=== PATIENT | male | born 1955 | race American Indian/Alaskan Native ===

== ENCOUNTER 2018-10-04 23:15 | Inpatient (IN) | payer MEDICARE, OTHER ==
[2018-10-05 00:29] LABS: Basophils # (Auto) 0.1 K/mm3 (0.0-0.1); Basophils % (Auto) 1.1 % (0.0-1.8); Eosinophils # (Auto) 0.1 K/mm3 (0.0-0.4); Eosinophils % (Auto) 2.5 % (0.0-4.3); Hematocrit 32.1 % (35.5-45.6); Hemoglobin 10.7 gm/dl (11.8-15.2); Lymphocytes % (Auto) 18.6 % (13.4-35.0); Mean Corpuscular HGB Conc 33 % (32-34); Mean Corpuscular Volume 77 fl (84-94); Monocytes # (Auto) 0.6 K/mm3 (0.0-0.8); Monocytes % (Auto) 10.6 % (0.0-7.3); Platelet Count 269 K/mm3 (140-440); Red Blood Count 4.18 M/mm3 (3.65-5.03)
[2018-10-05 01:04] LABS: Red Cell Distribution Width 23.7 % (13.2-15.2)
[2018-10-05] MEDS ORDERED: ULTRAM PO ONE ×2 (01:05→10:45)
[2018-10-05 01:07] LABS: Albumin 2.9 g/dL (3.9-5)
--- NOTE | 2018-10-05 01:17 | Emergency Department Report ---
ED General Adult HPI - General Chief complaint: Pain General Stated complaint: GENERAL PAIN/SUICIDAL THOUGHTS Time Seen by Provider: 10/04/18 23:58 Source: patient Mode of arrival: Stretcher Limitations: No Limitations - History of Present Illness Initial comments: 63-year-old male with history of end-stage renal disease on dialysis presents to the ED with suicidal ideation, due to depression from chronic pain. He states he was weaned down from his opiates, origin made him very depressed. He takes tramadol 50 mg twice a day for his chronic pain which consist of back and joint pain. - Related Data Home Medications Medication Instructions Recorded Confirmed Last Taken Brimonidine 0.15% 1 drop OU TID 10/05/18 10/05/18 Unknown Cefpodoxime Proxetil 200 mg PO 3XW 10/05/18 10/05/18 2 Days Ago ~10/03/18 Cholecalciferol (Vitamin D3) 400 tab PO DAILY 10/05/18 10/06/18 Unknown Minoxidil [Loniten] 2.5 mg PO BID 10/05/18 10/05/18 Unknown NIFEdipine [Nifedipine ER] 60 mg PO DAILY 10/05/18 10/05/18 1 Day Ago ~10/04/18 Magnesium Oxide 420 mg PO DAILY 10/06/18 10/06/18 Unknown Omeprazole 20 mg PO DAILY 10/06/18 10/06/18 Unknown Sennosides 8.6 mg PO PRN 10/06/18 10/06/18 Unknown Terazosin HCl 10 mg PO QHS 10/06/18 10/06/18 Unknown Allergies Allergy/AdvReac Type Severity Reaction Status Date / Time No Known Allergies Allergy Verified 10/05/18 01:27 ED Review of Systems ROS: Stated complaint: GENERAL PAIN/SUICIDAL THOUGHTS Other details as noted in HPI Comment: All other systems reviewed and negative Gastrointestinal: denies: abdominal pain, nausea Genitourinary: denies: urgency Musculoskeletal: back pain, arthralgia ED Past Medical Hx - Past Medical History Previous Medical History?: Yes Hx Renal Disease: Yes Hx Arthritis: Yes Hx COPD: Yes Additional medical history: AICD PACEMAKER - Surgical History Past Surgical History?: Yes Additional Surgical History: fistula placement - Social History Smoking Status: Current Every Day Smoker Substance Use Type: None - Medications Home Medications: Home Medications Medication Instructions Recorded Confirmed Last Taken Type Brimonidine 0.15% 1 drop OU TID 10/05/18 10/05/18 Unknown History Cefpodoxime Proxetil 200 mg PO 3XW 10/05/18 10/05/18 2 Days Ago History ~10/03/18 Cholecalciferol (Vitamin D3) 400 tab PO DAILY 10/05/18 10/06/18 Unknown History Minoxidil [Loniten] 2.5 mg PO BID 10/05/18 10/05/18 Unknown History NIFEdipine [Nifedipine ER] 60 mg PO DAILY 10/05/18 10/05/18 1 Day Ago History ~10/04/18 Magnesium Oxide 420 mg PO DAILY 10/06/18 10/06/18 Unknown History Omeprazole 20 mg PO DAILY 10/06/18 10/06/18 Unknown History Sennosides 8.6 mg PO PRN 10/06/18 10/06/18 Unknown History Terazosin HCl 10 mg PO QHS 10/06/18 10/06/18 Unknown History ED Physical Exam - General Limitations: No Limitations General appearance: alert, in no apparent distress - Head Head exam: Present: atraumatic, normocephalic - Eye Eye exam: Present: normal appearance, PERRL, EOMI Pupils: Present: normal accommodation - ENT ENT exam: Present: normal exam - Neck Neck exam: Present: normal inspection - Psychiatric Psychiatric exam: Present: depressed ED Course Vital Signs 10/04/18 10/05/18 10/05/18 23:18 01:20 09:50 Temperature 98 F 97.5 F L 98.3 F Pulse Rate 74 69 85 Respiratory 18 18 20 Rate Blood Pressure 147/84 Blood Pressure 158/83 177/92 [Right] O2 Sat by Pulse 95 98 97 Oximetry ED Medical Decision Making - Lab Data Result diagrams: 10/05/18 00:07 10/07/18 12:58 Critical care attestation.: If time is entered above; I have spent that time in minutes in the direct care of this critically ill patient, excluding procedure time. ED Disposition Clinical Impression: End stage renal disease Chronic pain Qualifiers: Chronic pain type: chronic pain syndrome Qualified Code(s): G89.4 - Chronic pain syndrome Disposition: LEFT AGAINST MED ADVICE Is pt being admited?: No Does the pt Need Aspirin: No Condition: Stable
[2018-10-05 05:43] LABS: Bilirubin,Urine NEG (Negative); Blood,Urine NEG (Negative); Color,Urine Yellow (Yellow); Urobilinogen,Urine < 2.0 mg/dL (<2.0)
[2018-10-05 05:51] LABS: Amphetamine Screen,Urine PRESUMPTIVE NEGATIVE; Benzodiazepines Screen,Urine PRESUMPTIVE NEGATIVE; Cannabinoid Screen,Urine PRESUMPTIVE NEGATIVE; Cocaine Screen,Urine PRESUMPTIVE NEGATIVE; Methadone Screen,Urine PRESUMPTIVE NEGATIVE; Opiate Screen,Urine PRESUMPTIVE NEGATIVE
--- NOTE | 2018-10-05 07:26 | XRay Report ---
CHEST 1 VIEW INDICATION / CLINICAL INFORMATION: hypertension. COMPARISON: None available. FINDINGS: SUPPORT DEVICES: Dual-chamber pacemaker on the left. HEART / MEDIASTINUM: No significant abnormality. LUNGS / PLEURA: Mild patchy density is seen in the right lower lung. No pneumothorax. ADDITIONAL FINDINGS: No significant additional findings. IMPRESSION: 1. Airspace opacity in the right lower lung. Signer Name: Remberto Torres MD Signed: 10/05/2018 7:21 AM Workstation Name: [id number]
--- NOTE | 2018-10-05 07:58 | Emergency Department Report ---
Brenda Doc - Documentation Documentation: Patient previously 1013 by one of my colleagues. He is denying suicidal ideati on now. He states he simply was not able to get his chronic tramadol from his dialysis doctor. He tells me this is because his dialysis doctor does not want assume his primary care. He states he was frustrated about not having his tramadol and made some comment about life not being worth living. He denies being suicidal however. It certainly does not seem to be depressed at this point nor actively suicidal. Patient states he's had some occasional cough but no fever no chills. He states he is due for dialysis today. He also states he gets a weekly paracentesis for ascites. He does not know the etiology of this ascites. He does not know who his dialysis physician is. He is dialyzed at [facility] (? [facility]. He states he is recently moved here from [place]. On examination patient is nontoxic and Apley hydrated. Doesn't appear to be fluid overloaded. HEENT his sclerae clear Neck is supple no meningismus Cardiovascular S1-S2 regular rate without murmur Chest clear to auscultation Abdomen patient has semi-tense ascites, abdomen soft nontender Musculoskeletal exam no acute deformity Neurological exam patient is fully ambulatory and grossly intact Assessment #1 end-stage renal disease dialysis #2 tests ascites needs paracentesis #3 doubt suicidal ideation #4 right lower lobe airspace opacity Plan Patient to be admitted to the hospital service. I have ordered a plain CT of his chest to further delineate number 4.
--- NOTE | 2018-10-05 09:21 | Cat Scan Report ---
CT CHEST WITHOUT CONTRAST INDICATION / CLINICAL INFORMATION: Dyspnea chest pain. TECHNIQUE: Axial CT images were obtained through the chest without contrast. All CT scans at this location are p erformed using CT dose reduction for ALARA by means of automated exposure control. COMPARISON: None available. FINDINGS: HEART: Cardiomegaly. Cardiac leads project in expected position.. THORACIC AORTA: No significant abnormality. MEDIASTINUM and BALTAZAR: No significant abnormality. LUNGS: No acute air space or interstitial disease. Trace interstitial edema PLEURA: No significant pleural effusion. No pneumothorax. ADDITIONAL FINDINGS: None. UPPER ABDOMEN: Cirrhotic liver with large volume ascites SKELETAL SYSTEM: No significant abnormality. IMPRESSION: Cardiomegaly with trace interstitial edema. No pneumonia. Cirrhotic liver with large volume ascites i n the abdomen. Signer Name: Rigoberto Hightower MD Signed: 10/05/2018 9:17 AM Workstation Name: [id number]
[2018-10-05] MEDS ORDERED: ULTRAM ONE (10:50)
[2018-10-05] MEDS ORDERED: TYLENOL PO PRN (12:58)
[2018-10-05] MEDS ORDERED: ZOFRAN IV PRN (12:58)
[2018-10-05] MEDS ORDERED: SODIUM CHLORIDE FLUSH SYRINGE 10 ML IV PRN (12:58)
[2018-10-05] MEDS ORDERED: HALDOL IM PRN (12:59)
[2018-10-05] MEDS ORDERED: HALDOL PO PRN (12:59)
[2018-10-05] MEDS: PROCARDIA XL PO SCH (15:38)
[2018-10-05] MEDS ORDERED: APRESOLINE PO PRN (16:46)
--- NOTE | 2018-10-05 17:05 | History and Physical Report ---
History of Present Illness Date of admission: 10/05/18 07:58 Chief complaint: I have pain and I feel depressed History of present illness: 63-year-old man who presents with suicidal ideation. He is a and usually follows up at the [facility]. The patient states that he was very depressed, most likely due to his chronic pain. He believes that taking opiates is making him depressed, he was then weaned down to tramadol twice a day for chronic back and joint pain. The patient did not have a definite plan to kill himself if he wanted to Past medical history End-stage renal disease, Osteoarthritis, COPD, status post AICD/pacemaker, Past surgical history av placement, AICD/pacemaker placement next Social history Current every day smoker Family history Family history of heart disease Medications and Allergies Allergies Allergy/AdvReac Type Severity Reaction Status Date / Time No Known Allergies Allergy Verified 10/05/18 01:27 Home Medications Medication Instructions Recorded Confirmed Last Taken Type Brimonidine 0.15% 1 drop OU TID 10/05/18 10/05/18 Unknown History Cefpodoxime Proxetil 200 mg PO 3XW 10/05/18 10/05/18 2 Days Ago History ~10/03/18 NIFEdipine [Nifedipine ER] 60 mg PO DAILY 10/05/18 10/05/18 1 Day Ago History ~10/04/18 Active Meds: Active Medications Acetaminophen (Tylenol) 650 mg PO Q4H PRN PRN Reason: Pain MILD(1-3)/Fever >100.5/HUERTAS Amlodipine Besylate (Norvasc) 10 mg PO QDAY [facility] Brimonidine Tartrate (Alphagan P 0.15%) 1 drops OU TID [facility] Haloperidol (Haldol) 1 mg PO Q6H PRN PRN Reason: Agitation Haloperidol Lactate (Haldol) 5 mg IM Q6H PRN PRN Reason: Agitation Hydralazine HCl (Apresoline) 25 mg PO Q6H PRN PRN Reason: Bp > 160/100 Nifedipine (Procardia Xl) 60 mg PO QDAY [facility] Last Admin: 10/05/18 15:38 Dose: 60 mg Documented by: Ondansetron HCl (Zofran) 4 mg IV Q8H PRN PRN Reason: Nausea And Vomiting Sodium Chloride (Sodium Chloride Flush Syringe 10 Ml) 10 ml IV BID [place] Sodium Chloride (Sodium Chloride Flush Syringe 10 Ml) 10 ml IV PRN PRN PRN Reason: LINE FLUSH Review of Systems All systems: negative Constitutional: fatigue Ears, nose, mouth and throat: ear pain Cardiovascular: no chest pain Respiratory: no cough Gastrointestinal: loss of appetite, early satiety, other (abdominal distention) Genitourinary Male: no dysuria Rectal: no pain Musculoskeletal: no neck stiffness Integumentary: no rash Neurological: no transient paralysis Psychiatric: change in sleep habits, sleep disturbances Endocrine: no cold intolerance Hematologic/Lymphatic: no easy bruising Allergic/Immunologic: no urticaria Exam - Constitutional Vitals: Temp Pulse Resp BP Pulse Ox 98.3 F 85 20 177/92 97 10/05/18 09:50 10/05/18 09:50 10/05/18 09:50 10/05/18 09:50 10/05/18 09:50 General appearance: Present: no acute distress, well-nourished - EENT Eyes: Present: PERRL ENT: hearing intact, clear oral mucosa - Neck Neck: Present: supple, normal ROM - Respiratory Respiratory effort: normal Respiratory: bilateral: CTA - Cardiovascular Heart Sounds: Present: S1 & S2. Absent: rub, click - Extremities Extremities: pulses symmetrical, No edema Peripheral Pulses: within normal limits - Abdominal General gastrointestinal: Present: soft, non-tender, distended (with shifting dullness), normal bowel sounds Male genitourinary: Present: normal - Integumentary Integumentary: Present: clear, warm, dry - Musculoskeletal Musculoskeletal: gait normal, strength equal bilaterally - Psychiatric Psychiatric: no appropriate mood/affect, no intact judgment & insight - Neurologic Neurologic: CNII-XII intact, moves all extremities Results - Labs CBC & Chem 7: 10/05/18 00:07 10/05/18 00:07 Labs: Laboratory Last Values WBC 5.4 K/mm3 (4.5-11.0) 10/05/18 00:07 RBC 4.18 M/mm3 (3.65-5.03) 10/05/18 00:07 Hgb 10.7 gm/dl (11.8-15.2) L 10/05/18 00:07 Hct 32.1 % (35.5-45.6) L 10/05/18 00:07 MCV 77 fl (84-94) L 10/05/18 00:07 MCH 26 pg (28-32) L 10/05/18 00:07 MCHC 33 % (32-34) 10/05/18 00:07 RDW 23.7 % (13.2-15.2) H 10/05/18 00:07 Plt Count 269 K/mm3 (140-440) 10/05/18 00:07 Lymph % (Auto) 18.6 % (13.4-35.0) 10/05/18 00:07 [place] % (Auto) 10.6 % (0.0-7.3) H 10/05/18 00:07 Eos % (Auto) 2.5 % (0.0-4.3) 10/05/18 00:07 Baso % (Auto) 1.1 % (0.0-1.8) 10/05/18 00:07 Lymph # 1.0 K/mm3 (1.2-5.4) L 10/05/18 00:07 [place] # 0.6 K/mm3 (0.0-0.8) 10/05/18 00:07 Eos # 0.1 K/mm3 (0.0-0.4) 10/05/18 00:07 Baso # 0.1 K/mm3 (0.0-0.1) 10/05/18 00:07 Seg Neutrophils % 67.2 % (40.0-70.0) 10/05/18 00:07 Seg Neutrophils # 3.6 K/mm3 (1.8-7.7) 10/05/18 00:07 Sodium 140 mmol/L (137-145) 10/05/18 00:07 Potassium 4.6 mmol/L (3.6-5.0) 10/05/18 00:07 Chloride 99.2 mmol/L (98-107) 10/05/18 00:07 Carbon Dioxide 27 mmol/L (22-30) 10/05/18 00:07 18 mmol/L 10/05/18 00:07 BUN 78 mg/dL (9-20) H 10/05/18 00:07 10.2 mg/dL (0.8-1.5) H 10/05/18 00:07 Estimated GFR 6 ml/min 10/05/18 00:07 8 % 10/05/18 00:07 Glucose 118 mg/dL (75-100) H 10/05/18 00:07 Calcium 8.0 mg/dL (8.4-10.2) L 10/05/18 00:07 0.20 mg/dL (0.1-1.2) 10/05/18 00:07 AST 30 units/L (5-40) 10/05/18 00:07 ALT 16 units/L (7-56) 10/05/18 00:07 111 units/L (35-129) 10/05/18 00:07 6.3 g/dL (6.3-8.2) 10/05/18 00:07 2.9 g/dL (3.9-5) L 10/05/18 00:07 0.9 % 10/05/18 00:07 Yellow (Yellow) 10/05/18 05:06 Clear (Clear) 10/05/18 05:06 8.0 (5.0-7.0) H 10/05/18 05:06 Ur Specific [place] 1.011 (1.003-1.030) 10/05/18 05:06 30 mg/dl mg/dL (Negative) 10/05/18 05:06 Neg mg/dL (Negative) 10/05/18 05:06 Neg mg/dL (Negative) 10/05/18 05:06 Neg (Negative) 10/05/18 05:06 Neg (Negative) 10/05/18 05:06 Neg (Negative) 10/05/18 05:06 < 2.0 mg/dL (<2.0) 10/05/18 05:06 Ur Leukocyte Esterase Tr (Negative) 10/05/18 05:06 5.0 /HPF (0.0-6.0) 10/05/18 05:06 1.0 /HPF (0.0-6.0) 10/05/18 05:06 Presumptive negative 10/05/18 05:06 Presumptive negative 10/05/18 05:06 Ur Barbiturates Screen Presumptive negative 10/05/18 05:06 Ur Phencyclidine Scrn Presumptive negative 10/05/18 05:06 Ur Amphetamines Screen Presumptive negative 10/05/18 05:06 U Benzodiazepines Scrn Presumptive negative 10/05/18 05:06 Presumptive negative 10/05/18 05:06 U Marijuana (THC) Screen Presumptive negative 10/05/18 05:06 Disclamer 10/05/18 05:06 Plasma/Serum Alcohol < 0.01 % (0-0.07) 10/05/18 01:26 Assessment and Plan Assessment and plan: 63-year-old man who presents to the hospital suicidal ideation EKG shows atrial sensing with ventricular pacing with complete capture Suicidal ideation, major depression Management per psychiatry, Haldol when necessary agitation End-stage renal disease In Store Representative consulted for maintenance dialysis Right lung airspace disease CT scan ordered by ER physician showed trace interstitial edema and no pneumonia but cirrhotic liver with marked ascites in abdomen was seen Decompensated cirrhotic liver disease Ascites Obtain hepatitis screening labs, ultrasound guided paracentesis ordered GI consult, Htn urgency optimize bp meds tobacco abuse nicotine patch, counseled about cessation for 11 mins DVT prophylaxis with Lovenox
[2018-10-05] MEDS: APRESOLINE IV PRN ×2 (17:29→21:39)
[2018-10-05] MEDS: ULTRAM PO PRN ×2 (17:30→23:38)
[2018-10-05] MEDS: NORVASC PO SCH (17:30)
--- NOTE | 2018-10-05 18:48 | Consultation ---
History of Present Illness - Reason for Consult Consult date: 10/05/18 Reason for consult: psychiatric evaluation to assess suicide risk - Chief Complaint Chief complaint: "I said I'd rather not live in pain like this." - History of Present Psychiatric Illness 63-year-old man who presented to the ER for pain reasons and made statements that he didn't want to live if he had to hurt like he is. He is a and usually follows up at the [facility]. He recently moved from [place] where he was living alone. He states it became increasingly difficult to care for his needs. He now lives with family. He says he was doing well on tramadol 50mg, 2 po bid and this was confirmed on [place] PDMP. The tramadol was no longer being prescribed and he does not know why. The PDMP indicates he has received #7 day rx x 2 in the last month. He states he has been going to ERs in an attempt for pain relief. He took an old oxycodone prescription, 1/4 tab q 6 hours for a couple of days but it stopped working. He states he wants to live and is doing what he needs to live as comfortably as possible considering his health conditions. He intends to c ontinue going to dialysis. He adamantly denies suicidal ideation. He denies HI and denies AVH. Medications and Allergies Allergies Allergy/AdvReac Type Severity Reaction Status Date / Time No Known Allergies Allergy Verified 10/05/18 01:27 Home Medications Medication Instructions Recorded Confirmed Last Taken Type Brimonidine 0.15% 1 drop OU TID 10/05/18 10/05/18 Unknown History Cefpodoxime Proxetil 200 mg PO 3XW 10/05/18 10/05/18 2 Days Ago History ~10/03/18 Cholecalciferol (Vitamin D3) 1 tab PO DAILY 10/05/18 10/05/18 Unknown History Minoxidil [Loniten] 2.5 mg PO BID 10/05/18 10/05/18 Unknown History NIFEdipine [Nifedipine ER] 60 mg PO DAILY 10/05/18 10/05/18 1 Day Ago History ~10/04/18 Active Meds: Active Medications Acetaminophen (Tylenol) 650 mg PO Q4H PRN PRN Reason: Pain MILD(1-3)/Fever >100.5/HUERTAS Amlodipine Besylate (Norvasc) 10 mg PO QDAY [facility] Last Admin: 10/05/18 17:30 Dose: 10 mg Documented by: Brimonidine Tartrate (Alphagan P 0.15%) 1 drops OU TID [facility] Haloperidol (Haldol) 1 mg PO Q6H PRN PRN Reason: Agitation Haloperidol Lactate (Haldol) 5 mg IM Q6H PRN PRN Reason: Agitation Hydralazine HCl (Apresoline) 25 mg PO Q6H PRN PRN Reason: Bp > 160/100 Hydralazine HCl (Apresoline) 10 mg IV Q4HR PRN PRN Reason: BP >160/100 Last Admin: 10/05/18 17:29 Dose: 10 mg Documented by: Nifedipine (Procardia Xl) 60 mg PO QDAY [facility] Last Admin: 10/05/18 15:38 Dose: 60 mg Documented by: Ondansetron HCl (Zofran) 4 mg IV Q8H PRN PRN Reason: Nausea And Vomiting Sodium Chloride (Sodium Chloride Flush Syringe 10 Ml) 10 ml IV BID [place] Sodium Chloride (Sodium Chloride Flush Syringe 10 Ml) 10 ml IV PRN PRN PRN Reason: LINE FLUSH Tramadol HCl (Ultram) 50 mg PO Q6H PRN PRN Reason: Pain, Moderate (4-6) Last Admin: 10/05/18 17:30 Dose: 50 mg Documented by: Past psychiatric history - Past Medical History Past Medical History: arrhythmia, COPD, ESRD, other (has ascites, glaucoma, cataracts) Past Surgical History: Other (AICD/Pacemaker) - past Psychiatric treatment and history psychiatric treatment history: He has been diagnosed with PTSD and says he went to therapy but does not take medications. He states he is not disabled from PTSD but is 100% from medically conditions. - Social History Social history: lives with family, other () Mental Status Exam - Vital signs Last Vital Signs Temp 98.3 F 10/05/18 09:50 Pulse 85 10/05/18 09:50 Resp 20 10/05/18 09:50 BP 177/92 10/05/18 09:50 Pulse Ox 97 10/05/18 09:50 - Exam Orientation: time, place, person Affect: normal Mood: appropriate, calm Thought content: other (no suicidal or homicidal ideation) Thought Process: Intact, Circumstantial Perceptions: none Speech: normal rate and pattern Concentration: focused Motor activity: normal Level of consciousness: alert Memory: Intact Sleep Symptoms: Difficulty Falling Asleep Appetite: decreased Interaction: cooperative Results Result Diagrams: 10/05/18 00:07 10/05/18 00:07 Abnormal lab results 10/05/18 10/05/18 10/05/18 Range/Units 00:07 00:07 05:06 Hgb 10.7 L (11.8-15.2) gm/dl Hct 32.1 L (35.5-45.6) % MCV 77 L (84-94) fl MCH 26 L (28-32) pg RDW 23.7 H (13.2-15.2) % [place] % (Auto) 10.6 H (0.0-7.3) % Lymph # 1.0 L (1.2-5.4) K/mm3 BUN 78 H (9-20) mg/dL Creatinine 10.2 H (0.8-1.5) mg/dL Glucose 118 H (75-100) mg/dL Calcium 8.0 L (8.4-10.2) mg/dL Albumin 2.9 L (3.9-5) g/dL Urine pH 8.0 H (5.0-7.0) All other labs normal. Assessment and Plan Assessment and plan: Impression: The record indicates he made suicidal statements. These statements could be considered passive thoughts or expression of frustration that he is not able to obtain tramadol. 1013 is no indicated. He is a low risk for suicide. He has family support and actively seeks medical care when needed. It is notable that PDMP indicates he has a 7 day prescription of tramadol 50mg bid and 30 days prescription of lyrica. chronic pain PTSD-no meds Recommnedation: rescind 1013 address chronic pain as recommended by the hospitalist or outpatient provider dispo: inpt psych treatment not indicated. Participate in psych outpatient treatment as recommended by the [facility] staffed with Dr. Snider
[2018-10-05 19:59] LABS: Hepatitis C Virus Antibody Non-Reactive (NonReactive)
[2018-10-05] MEDS ORDERED: BRIMONIDINE 0.15% OU SCH (20:00)
[2018-10-05 20:39] LABS: Hepatitis B Surface Antigen Non-Reactive (Negative)
[2018-10-05] MEDS: SODIUM CHLORIDE FLUSH SYRINGE 10 ML IV SCH (21:44)
[2018-10-05] MEDS: ALPHAGAN P 0.15% OU SCH (23:45)
[2018-10-06] MEDS: APRESOLINE IV PRN (02:57)
[2018-10-06] MEDS: ULTRAM PO PRN ×4 (05:37→23:18)
[2018-10-06] MEDS: ALPHAGAN P 0.15% OU SCH ×3 (08:03→20:36)
[2018-10-06] MEDS: NORVASC PO SCH (09:39)
[2018-10-06] MEDS: PROCARDIA XL PO SCH (09:39)
[2018-10-06] MEDS: SODIUM CHLORIDE FLUSH SYRINGE 10 ML IV SCH ×2 (09:40→23:19)
[2018-10-06] MEDS ORDERED: NON-FORMULARY (Nifedipine [Nifedipine Er] 60 MG) PO SCH (10:00)
[2018-10-06] MEDS ORDERED: NACL 0.9% 100 ML IV PRN (19:37)
[2018-10-06] MEDS ORDERED: HEPARIN 10,000 UNITS/10 ML IV PRN (19:37)
[2018-10-06] MEDS ORDERED: PROCRIT IV PRN (19:37)
--- NOTE | 2018-10-06 19:37 | Consultation ---
History of Present Illness - Reason for Consult Consult date: 10/06/18 end stage renal disease Requesting physician: GERARDO ORNELAS - History of Present Illness 63-year-old male with a history of end-stage renal disease on hemodialysis on a Sunday, and Sunday schedule. Patient was brought to the hospital due to suicidal ideation. He states I dont want to live like this. 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 Lives with sister. Was in [facility] ). denies: alcohol abuse, prescription drug abuse, IV drug use Medications and Allergies Allergies Allergy/AdvReac Type Severity Reaction Status Date / Time No Known Allergies Allergy Verified 10/05/18 01:27 Home Medications Medication Instructions Recorded Confirmed Last Taken Type Brimonidine 0.15% 1 drop OU TID 10/05/18 10/05/18 Unknown History Cefpodoxime Proxetil 200 mg PO 3XW 10/05/18 10/05/18 2 Days Ago History ~10/03/18 Cholecalciferol (Vitamin D3) 400 tab PO DAILY 10/05/18 10/06/18 Unknown History Minoxidil [Loniten] 2.5 mg PO BID 10/05/18 10/05/18 Unknown History NIFEdipine [Nifedipine ER] 60 mg PO DAILY 10/05/18 10/05/18 1 Day Ago History ~10/04/18 Magnesium Oxide 420 mg PO DAILY 10/06/18 10/06/18 Unknown History Omeprazole 20 mg PO DAILY 10/06/18 10/06/18 Unknown History Sennosides 8.6 mg PO PRN 10/06/18 10/06/18 Unknown History Terazosin HCl 10 mg PO QHS 10/06/18 10/06/18 Unknown History Active Meds: Active Medications Acetaminophen (Tylenol) 650 mg PO Q4H PRN PRN Reason: Pain MILD(1-3)/Fever >100.5/HUERTAS Brimonidine Tartrate (Alphagan P 0.15%) 1 drops OU TID [facility] Last Admin: 10/06/18 14:07 Dose: 1 drops Documented by: Cholecalciferol (Vitamin D3) 400 unit PO QDAY [facility] Haloperidol (Haldol) 1 mg PO Q6H PRN PRN Reason: Agitation Last Admin: 10/05/18 20:15 Dose: 1 mg Documented by: Haloperidol Lactate (Haldol) 5 mg IM Q6H PRN PRN Reason: Agitation Hydralazine HCl (Apresoline) 25 mg PO Q6H PRN PRN Reason: Bp > 160/100 Hydralazine HCl (Apresoline) 10 mg IV Q4HR PRN PRN Reason: BP >160/100 Last Admin: 10/06/18 02:57 Dose: 10 mg Documented by: Minoxidil (Loniten) 2.5 mg PO BID [facility] Nifedipine (Procardia Xl) 60 mg PO QDAY [facility] Ondansetron HCl (Zofran) 4 mg IV Q8H PRN PRN Reason: Nausea And Vomiting Sodium Chloride (Sodium Chloride Flush Syringe 10 Ml) 10 ml IV BID [facility] Last Admin: 10/06/18 09:40 Dose: 10 ml Documented by: Sodium Chloride (Sodium Chloride Flush Syringe 10 Ml) 10 ml IV PRN PRN PRN Reason: LINE FLUSH Tramadol HCl (Ultram) 50 mg PO Q6H PRN PRN Reason: Pain, Moderate (4-6) Last Admin: 10/06/18 17:34 Dose: 50 mg Documented by: Review of Systems All systems: negative (as noted in HPI) Exam - Vital Signs Vital signs: Vital Signs Temp Pulse Resp BP Pulse Ox 98 F 74 18 147/84 95 10/04/18 23:18 10/04/18 23:18 10/04/18 23:18 10/04/18 23:18 10/04/18 23:18 Results - Lab Results 10/05/18 00:07 10/07/18 12:58 Most recent lab results Calcium 8.0 mg/dL (8.4-10.2) L 10/05/18 00:07 Assessment and Plan - Patient Problems (1) End stage renal disease Current Visit: Yes Status: Acute Plan to address problem: Electrolytes relatively stable and no overt volume overload. Hemodialysis in the morning. (2) Ascites Current Visit: Yes Status: Acute Plan to address problem: Paracentesis in the morning. (3) Anemia in end-stage renal disease Current Visit: Yes Status: Acute Plan to address problem: Erythropoetin on dialysis (4) Chronic pain Current Visit: Yes Status: Acute Plan to address problem: Pain management by primary attending (5) Low back pain Current Visit: Yes Status: Acute Plan to address problem: Continue pain medication per primary attending
[2018-10-06] MEDS ORDERED: PROCARDIA XL PO SCH (22:00)
[2018-10-06] MEDS: LONITEN PO SCH (23:18)
[2018-10-07 05:20] LABS: INR 1.24 (0.87-1.13)
[2018-10-07 05:21] LABS: Partial Thromboplastin Time 35.1 Sec. (24.2-36.6)
[2018-10-07] MEDS ORDERED: MORPHINE IV ONE (05:52)
[2018-10-07] MEDS: ALPHAGAN P 0.15% OU SCH ×2 (07:45→14:00)
[2018-10-07] MEDS ORDERED: MORPHINE IV NR (08:45)
--- NOTE | 2018-10-07 08:49 | Progress Note ---
Assessment and Plan - Patient Problems (1) End stage renal disease Current Visit: Yes Status: Acute Plan to address problem: Electrolytes relatively stable and no overt volume overload. Hemodialysis this morning. Okay to discharge from renal standpoint after dialysis (2) Ascites Current Visit: Yes Status: Acute Plan to address problem: Paracentesis this morning. (3) Anemia in end-stage renal disease Current Visit: Yes Status: Acute Plan to address problem: Erythropoetin on dialysis (4) Chronic pain Current Visit: Yes Status: Acute Plan to address problem: Pain management by primary attending (5) Low back pain Current Visit: Yes Status: Acute Plan to address problem: Continue pain medication per primary attending Subjective Date of service: 10/07/18 Principal diagnosis: end-stage renal disease Interval history: Patient seen lying in bed this morning. He has no new complaints. Still has low back pain Objective - Exam Narrative Exam: Elderly -[place] male lying in bed in no acute distress HEENT: NCAT, pink oral mucous membrane Neck: Supple, no venous distention CVS: S1S2 RRR with no murmur, rub or gallop Chest: Clear to auscultation Abdomen: Distended, soft to firm, demonstrable ascites, nontender, no organomegaly, bowel sounds are present Extremities: No edema, left upper extremity AV fistula Genitourinary deferred Neuro: Awake, alert no focal deficits - Vital Signs Vital signs: Vital Signs - 12hr 10/07/18 10/07/18 10/07/18 02:28 07:45 08:43 Temperature 97.6 F 98.0 F Pulse Rate 60 66 Respiratory 18 20 Rate Blood Pressure 173/88 135/71 Blood Pressure 141/65 [Right] O2 Sat by Pulse 96 95 Oximetry 10/07/18 08:45 Temperature Pulse Rate 63 Respiratory Rate Blood Pressure Blood Pressure [Right] O2 Sat by Pulse Oximetry - Lab 10/05/18 00:07 10/07/18 12:58 Most recent lab results Calcium 8.0 mg/dL (8.4-10.2) L 10/05/18 00:07 Medications & Allergies - Medications Allergies/Adverse Reactions: Allergies No Known Allergies Allergy (Verified 10/05/18 01:27) Home Medications: Home Medications Medication Instructions Recorded Confirmed Last Taken Type Brimonidine 0.15% 1 drop OU TID 10/05/18 10/05/18 Unknown History Cefpodoxime Proxetil 200 mg PO 3XW 10/05/18 10/05/18 2 Days Ago History ~10/03/18 Cholecalciferol (Vitamin D3) 400 tab PO DAILY 10/05/18 10/06/18 Unknown History Minoxidil [Loniten] 2.5 mg PO BID 10/05/18 10/05/18 Unknown History NIFEdipine [Nifedipine ER] 60 mg PO DAILY 10/05/18 10/05/18 1 Day Ago History ~10/04/18 Magnesium Oxide 420 mg PO DAILY 10/06/18 10/06/18 Unknown History Omeprazole 20 mg PO DAILY 10/06/18 10/06/18 Unknown History Sennosides 8.6 mg PO PRN 10/06/18 10/06/18 Unknown History Terazosin HCl 10 mg PO QHS 10/06/18 10/06/18 Unknown History Active Medications: Generic Name Dose Route Start Last Admin Trade Name Freq PRN Reason Stop Dose Admin Acetaminophen 650 mg 10/05/18 12:58 Tylenol PO Q4H PRN Pain MILD(1-3)/Fever >100.5/HUERTAS Brimonidine Tartrate 1 drops 10/05/18 20:00 10/07/18 07:45 Alphagan P 0.15% OU 1 drops TID [place] Administration Cholecalciferol 400 unit 10/07/18 10:00 Vitamin D3 PO QDAY [place] Epoetin Jason 10,000 unit 10/06/18 19:37 Procrit IV MARCIAL PRN hemodialysis Haloperidol 1 mg 10/05/18 12:59 10/05/18 20:15 Haldol PO 1 mg Q6H PRN Administration Agitation Haloperidol Lactate 5 mg 10/05/18 12:59 Haldol IM Q6H PRN Agitation Heparin Sodium (Porcine) 1,000 unit 10/06/18 19:37 Heparin 10,000 Units/10 Ml IV MARCIAL PRN hemodialysis Hydralazine HCl 25 mg 10/05/18 16:46 Apresoline PO Q6H PRN Bp > 160/100 Hydralazine HCl 10 mg 10/05/18 17:22 10/06/18 02:57 Apresoline IV 10 mg Q4HR PRN Administration BP >160/100 Sodium Chloride 100 mls @ 999 mls/hr 10/06/18 19:37 Nacl 0.9% IV MARCIAL PRN Hypotension Minoxidil 2.5 mg 10/06/18 22:00 10/06/18 23:18 Loniten PO 2.5 mg BID [place] Administration Morphine Sulfate 2 mg 10/07/18 08:45 Morphine IV 10/07/18 12:00 ONCE NR Nifedipine 60 mg 10/07/18 10:00 Procardia Xl PO QDAY [place] Ondansetron HCl 4 mg 10/05/18 12:58 Zofran IV Q8H PRN Nausea And Vomiting Sodium Chloride 10 ml 10/05/18 22:00 10/06/18 23:19 Sodium Chloride Flush Syringe 10 Ml IV 10 ml BID [place] Administration Sodium Chloride 10 ml 10/05/18 12:58 Sodium Chloride Flush Syringe 10 Ml IV PRN PRN LINE FLUSH Tramadol HCl 50 mg 10/05/18 17:22 10/06/18 23:18 Ultram PO 50 mg Q6H PRN Administration Pain, Moderate (4-6)
[2018-10-07] MEDS ORDERED: CHOLECALCIFEROL PO SCH (10:00)
[2018-10-07] MEDS ORDERED: PROCARDIA XL PO SCH (10:00)
[2018-10-07] MEDS ORDERED: VITAMIN D3 PO SCH (10:00)
[2018-10-07] MEDS: SODIUM CHLORIDE FLUSH SYRINGE 10 ML IV SCH (10:02)
--- NOTE | 2018-10-07 10:17 | Procedure Note ---
Date of procedure: 10/07/18 Pre-op diagnosis: ascites Post-op diagnosis: same Procedure: US paracentesis Findings: large asites Anesthesia: local Surgeon: GERMAN BLANCO Estimated blood loss: none Pathology: list (120cc) Specimen disposition: to lab Condition: stable Disposition: floor
--- NOTE | 2018-10-07 12:16 | Ultrasound Report ---
ULTRASOUND-GUIDED PARACENTESIS HISTORY: ascites. PROCEDURE: The risks (including but not limited to bleeding, infection, and bowel injury) and benefi ts were explained to the patient and informed consent was obtained. A time out procedure was perform ed. Ultrasound was used to evaluate the abdomen and locate the largest ascites fluid pocket. Once the sk in was marked, the procedure site was prepped and draped in the usual sterile fashion and lidocaine w as used for local anesthesia. A skin mau was made and a 6-Dutch paracentesis catheter was placed. The patient was monitored closely throughout the procedure, and a total of 8500 mL of clear yellow f luid was aspirated. Samples were sent to the lab for further evaluation per the primary clinicians o rders. The patient tolerated the procedure well with no complications. IMPRESSION: Successful paracentesis as above with a total of 8500 mL of clear yellow fluid aspirated. Signer Name: Benji Salgado Jr, MD Signed: 10/07/2018 12:11 PM Workstation Name: [id number]
--- NOTE | 2018-10-07 12:25 | Progress Note ---
Assessment and Plan Assessment and plan: 63-year-old man who presents to the hospital suicidal ideation EKG shows atrial sensing with ventricular pacing with complete capture Suicidal ideation? Due to chronic pain Management per psychiatry, Haldol when necessary agitation. Patient states that he did not really want to kill himself. He had a lot of pain, was able to get pain meds from his PCP and therefore has felt stressed out. He had no intention to kill himself, had no plan to kill himself. Was just frustrated, couldn't take the pain anymore, seen by Mental health , he was deemed not to be suicidal. 10:30 was discontinued End-stage renal disease Boat [employer] consulted for maintenance dialysis Right lung airspace disease CT scan ordered by ER physician showed trace interstitial edema and no pneumonia but cirrhotic liver with marked ascites in abdomen was seen Decompensated cirrhotic liver disease Ascites Obtain hepatitis screening labs, paracentesis of 8.5L done GI consult, Htn urgency optimize bp meds tobacco abuse nicotine patch, counseled about cessation for 11 mins DVT prophylaxis with Lovenox History Interval history: Patient is complaining of severe back pain, which he says he has chronically Review of systems Constitutional: No fevers, no malaise, no joint pains CVS: No chest pain, no orthopnea, no dyspnea on exertion, no pedal edema GI: No abdominal pain , no diarrhea, no vomiting, no constipation Respiratory: no wheezing, no coughing Hospitalist Physical - Physical exam Narrative exam: General.: Appears well, no distress, nontoxic HEENT: Moist mucous membranes, extraocular muscles intact, no lymphadenopathy Neck: supple Cardiac: S1-S2 heard Lungs: clear to auscultation bilaterally Abdomen: soft , nondistended Extremities: no edema clubbing or cyanosis Skin: no rash or lesions Neurologic: no gross focal deficits Psych: calm, and cooperative - Constitutional Vitals: Temp Pulse Resp BP Pulse Ox 98.0 F 63 20 135/71 95 10/07/18 07:45 10/07/18 08:48 10/07/18 08:48 10/07/18 08:43 10/07/18 08:48 General appearance: Present: no acute distress, well-nourished Results - Labs CBC & Chem 7: 10/05/18 00:07 10/07/18 12:58 Labs: Laboratory Last Values WBC 5.4 K/mm3 (4.5-11.0) 10/05/18 00:07 RBC 4.18 M/mm3 (3.65-5.03) 10/05/18 00:07 Hgb 10.7 gm/dl (11.8-15.2) L 10/05/18 00:07 Hct 32.1 % (35.5-45.6) L 10/05/18 00:07 MCV 77 fl (84-94) L 10/05/18 00:07 MCH 26 pg (28-32) L 10/05/18 00:07 MCHC 33 % (32-34) 10/05/18 00:07 RDW 23.7 % (13.2-15.2) H 10/05/18 00:07 Plt Count 269 K/mm3 (140-440) 10/05/18 00:07 Lymph % (Auto) 18.6 % (13.4-35.0) 10/05/18 00:07 [place] % (Auto) 10.6 % (0.0-7.3) H 10/05/18 00:07 Eos % (Auto) 2.5 % (0.0-4.3) 10/05/18 00:07 Baso % (Auto) 1.1 % (0.0-1.8) 10/05/18 00:07 Lymph # 1.0 K/mm3 (1.2-5.4) L 10/05/18 00:07 [place] # 0.6 K/mm3 (0.0-0.8) 10/05/18 00:07 Eos # 0.1 K/mm3 (0.0-0.4) 10/05/18 00:07 Baso # 0.1 K/mm3 (0.0-0.1) 10/05/18 00:07 Seg Neutrophils % 67.2 % (40.0-70.0) 10/05/18 00:07 Seg Neutrophils # 3.6 K/mm3 (1.8-7.7) 10/05/18 00:07 PT 15.3 Sec. (12.2-14.9) H 10/07/18 03:57 INR 1.24 (0.87-1.13) H 10/07/18 03:57 APTT 35.1 Sec. (24.2-36.6) 10/07/18 03:57 Sodium 140 mmol/L (137-145) 10/05/18 00:07 Potassium 4.6 mmol/L (3.6-5.0) 10/05/18 00:07 Chloride 99.2 mmol/L (98-107) 10/05/18 00:07 Carbon Dioxide 27 mmol/L (22-30) 10/05/18 00:07 18 mmol/L 10/05/18 00:07 BUN 78 mg/dL (9-20) H 10/05/18 00:07 10.2 mg/dL (0.8-1.5) H 10/05/18 00:07 Estimated GFR 6 ml/min 10/05/18 00:07 8 % 10/05/18 00:07 Glucose 118 mg/dL (75-100) H 10/05/18 00:07 Calcium 8.0 mg/dL (8.4-10.2) L 10/05/18 00:07 0.20 mg/dL (0.1-1.2) 10/05/18 00:07 AST 30 units/L (5-40) 10/05/18 00:07 ALT 16 units/L (7-56) 10/05/18 00:07 111 units/L (35-129) 10/05/18 00:07 6.3 g/dL (6.3-8.2) 10/05/18 00:07 2.9 g/dL (3.9-5) L 10/05/18 00:07 0.9 % 10/05/18 00:07 Yellow (Yellow) 10/05/18 05:06 Clear (Clear) 10/05/18 05:06 8.0 (5.0-7.0) H 10/05/18 05:06 Ur Specific [place] 1.011 (1.003-1.030) 10/05/18 05:06 30 mg/dl mg/dL (Negative) 10/05/18 05:06 Neg mg/dL (Negative) 10/05/18 05:06 Neg mg/dL (Negative) 10/05/18 05:06 Neg (Negative) 10/05/18 05:06 Neg (Negative) 10/05/18 05:06 Neg (Negative) 10/05/18 05:06 < 2.0 mg/dL (<2.0) 10/05/18 05:06 Ur Leukocyte Esterase Tr (Negative) 10/05/18 05:06 5.0 /HPF (0.0-6.0) 10/05/18 05:06 1.0 /HPF (0.0-6.0) 10/05/18 05:06 Presumptive negative 10/05/18 05:06 Presumptive negative 10/05/18 05:06 Ur Barbiturates Screen Presumptive negative 10/05/18 05:06 Ur Phencyclidine Scrn Presumptive negative 10/05/18 05:06 Ur Amphetamines Screen Presumptive negative 10/05/18 05:06 U Benzodiazepines Scrn Presumptive negative 10/05/18 05:06 Presumptive negative 10/05/18 05:06 U Marijuana (THC) Screen Presumptive negative 10/05/18 05:06 Disclamer 10/05/18 05:06 Plasma/Serum Alcohol < 0.01 % (0-0.07) 10/05/18 01:26 Hepatitis A IgM Ab Non-reactive (NonReactive) 10/05/18 18:56 Hep Bs Antigen Non-reactive (Negative) 10/05/18 18:56 Hep B Core IgM Ab Non-reactive (NonReactive) 10/05/18 18:56 Non-reactive (NonReactive) 10/05/18 18:56 Active Medications - Current Medications Current Medications: Generic Name Dose Route Start Last Admin Trade Name Freq PRN Reason Stop Dose Admin Acetaminophen 650 mg 10/05/18 12:58 Tylenol PO Q4H PRN Pain MILD(1-3)/Fever >100.5/HUERTAS Brimonidine Tartrate 1 drops 10/05/18 20:00 10/07/18 07:45 Alphagan P 0.15% OU 1 drops TID [place] Administration Cholecalciferol 400 unit 10/07/18 10:00 Vitamin D3 PO QDAY [place] Epoetin Jason 10,000 unit 10/06/18 19:37 Procrit IV MARCIAL PRN hemodialysis Haloperidol 1 mg 10/05/18 12:59 10/05/18 20:15 Haldol PO 1 mg Q6H PRN Administration Agitation Haloperidol Lactate 5 mg 10/05/18 12:59 Haldol IM Q6H PRN Agitation Heparin Sodium (Porcine) 1,000 unit 10/06/18 19:37 Heparin 10,000 Units/10 Ml IV MARCIAL PRN hemodialysis Hydralazine HCl 25 mg 10/05/18 16:46 Apresoline PO Q6H PRN Bp > 160/100 Hydralazine HCl 10 mg 10/05/18 17:22 10/06/18 02:57 Apresoline IV 10 mg Q4HR PRN Administration BP >160/100 Sodium Chloride 100 mls @ 999 mls/hr 10/06/18 19:37 Nacl 0.9% IV MARCIAL PRN Hypotension Minoxidil 2.5 mg 10/06/18 22:00 10/06/18 23:18 Loniten PO 2.5 mg BID [place] Administration Nifedipine 60 mg 10/07/18 10:00 Procardia Xl PO QDAY [place] Ondansetron HCl 4 mg 10/05/18 12:58 Zofran IV Q8H PRN Nausea And Vomiting Sodium Chloride 10 ml 10/05/18 22:00 10/06/18 23:19 Sodium Chloride Flush Syringe 10 Ml IV 10 ml BID [place] Administration Sodium Chloride 10 ml 10/05/18 12:58 Sodium Chloride Flush Syringe 10 Ml IV PRN PRN LINE FLUSH Tramadol HCl 50 mg 10/05/18 17:22 10/06/18 23:18 Ultram PO 50 mg Q6H PRN Administration Pain, Moderate (4-6)
--- NOTE | 2018-10-07 12:58 | Consultation ---
REFERRING PHYSICIAN: Chay Ma MD INDICATION: 1. Abdominal swelling. 2. Ascites. HISTORY: The patient is a 63-year-old black male with a history of end-stage renal disease, osteoarthritis, COPD and status post pacemaker. The patient had presented and was admitted from the hospital for suicidal ideation. The patient is usually a patient at the [facility]. The patient reports he has been having this abdominal swelling with fluid. The patient reports this has been followed at the [facility], and he has been having multiple paracentesis. The patient reports that he has had a full evaluation and was told that his fluid accumulation was not secondary to cirrhosis. He reports management and evaluation is ongoing. He reports no history of liver disease in the past. Denies any weight loss. Denies any other GI symptoms, including any upper or lower GI symptoms. PAST MEDICAL HISTORY: 1. End-stage renal disease. 2. Osteoarthritis. 3. COPD. 4. Status post pacemaker. MEDICATIONS: Reviewed and updated in chart. ALLERGIES: No drug allergies. SOCIAL HISTORY: Current smoker. Denies alcohol in the past. FAMILY HISTORY: Negative for colon cancer, IBD, or liver disease. REVIEW OF SYSTEMS: GENERAL: Reports mild weakness. HEENT: No visual complaints or tinnitus. PULMONARY: No shortness of breath. No cough. No chest pain. GASTROINTESTINAL: Reports abdominal swelling. All points of 12-point review of systems otherwise negative. PHYSICAL EXAMINATION: VITAL SIGNS: Temperature of 98.8, pulse 70, respirations 18, blood pressure 140/70. GENERAL: Fairly thin male, in no acute distress. HEENT: Pupils equal, round, and reactive. PULMONARY: Clear to auscultation bilaterally. CARDIOVASCULAR: Regular rate and rhythm. Normal S1 and S2. ABDOMEN: Positive bowel sounds, distended. EXTREMITIES: No obvious rashes. LABORATORY DATA: Pertinent for white count of 5.4, hemoglobin and hematocrit of 10.7 and 32.1, platelet count 269. Chem-7 within normal limits except for BUN and creatinine of 78 and 10.2. LFTs within normal limits. Acute hepatitis panel negative. ASSESSMENT: A 63-year-old male with multiple medical problems as noted above was admitted for suicidal ideation, now with abdominal distention. The patient reports he has had abdominal ascites over recent months and has had a full evaluation at the [facility] and was told that his ascites was not secondary to underlying cirrhosis. The patient's labs including platelet count, LFTs and albumin are not consistent with severe underlying liver disease. The patient reports [facility] I have discussed with him and he himself thinks he does not need any further evaluation for this and that this is a matter being taken care of at the [facility]. Management is noted below. PLAN: 1. Agree with large volume paracentesis as ordered by primary team. 2. Albumin with paracentesis. 3. Suicidal ideation per primary team. 4. No plans for liver biopsy or intervention at this time, as this is an ongoing issue that has been evaluated at the [facility]. 5. We will follow for now. JOB# [id number] RENE/BELINDA PUENTE
[2018-10-07 13:06] LABS: Total Cells Counted 100 /mm3
[2018-10-07] MEDS: LONITEN PO SCH (13:14)
--- NOTE | 2018-10-07 13:42 | Gastroenterology Consultation ---
History of Present Illness - Reason for Consult Consult date: 10/07/18 ascites Requesting physician: GERARDO ORNELAS Past History Past Medical History: arrhythmia, COPD, ESRD, other ( ascites, glaucoma, cataracts) Past Surgical History: Other (AICD/Pacemaker, Paracentesis) Social history: lives with family, smoking (5-6 cigarettes a day), other ([place]) Medications and Allergies Allergies Allergy/AdvReac Type Severity Reaction Status Date / Time No Known Allergies Allergy Verified 10/05/18 01:27 Home Medications Medication Instructions Recorded Confirmed Last Taken Type Brimonidine 0.15% 1 drop OU TID 10/05/18 10/05/18 Unknown History Cefpodoxime Proxetil 200 mg PO 3XW 10/05/18 10/05/18 2 Days Ago History ~10/03/18 Cholecalciferol (Vitamin D3) 400 tab PO DAILY 10/05/18 10/06/18 Unknown History Minoxidil [Loniten] 2.5 mg PO BID 10/05/18 10/05/18 Unknown History NIFEdipine [Nifedipine ER] 60 mg PO DAILY 10/05/18 10/05/18 1 Day Ago History ~10/04/18 Magnesium Oxide 420 mg PO DAILY 10/06/18 10/06/18 Unknown History Omeprazole 20 mg PO DAILY 10/06/18 10/06/18 Unknown History Sennosides 8.6 mg PO PRN 10/06/18 10/06/18 Unknown History Terazosin HCl 10 mg PO QHS 10/06/18 10/06/18 Unknown History Active Meds: Active Medications Acetaminophen (Tylenol) 650 mg PO Q4H PRN PRN Reason: Pain MILD(1-3)/Fever >100.5/HUERTAS Brimonidine Tartrate (Alphagan P 0.15%) 1 drops OU TID [facility] Last Admin: 10/07/18 07:45 Dose: 1 drops Documented by: Cholecalciferol (Vitamin D3) 400 unit PO QDAY [facility] Last Admin: 10/07/18 13:15 Dose: Not Given Documented by: Epoetin Jason (Procrit) 10,000 unit IV MARCIAL PRN PRN Reason: hemodialysis Haloperidol (Haldol) 1 mg PO Q6H PRN PRN Reason: Agitation Last Admin: 10/05/18 20:15 Dose: 1 mg Documented by: Haloperidol Lactate (Haldol) 5 mg IM Q6H PRN PRN Reason: Agitation Heparin Sodium (Porcine) (Heparin 10,000 Units/10 Ml) 1,000 unit IV MARCIAL PRN PRN Reason: hemodialysis Hydralazine HCl (Apresoline) 25 mg PO Q6H PRN PRN Reason: Bp > 160/100 Hydralazine HCl (Apresoline) 10 mg IV Q4HR PRN PRN Reason: BP >160/100 Last Admin: 10/06/18 02:57 Dose: 10 mg Documented by: Sodium Chloride (Nacl 0.9%) 100 mls @ 999 mls/hr IV MARCIAL PRN PRN Reason: Hypotension Minoxidil (Loniten) 2.5 mg PO BID [facility] Last Admin: 10/07/18 13:14 Dose: Not Given Documented by: Nifedipine (Procardia Xl) 60 mg PO QDAY [facility] Last Admin: 10/07/18 13:14 Dose: Not Given Documented by: Ondansetron HCl (Zofran) 4 mg IV Q8H PRN PRN Reason: Nausea And Vomiting Sodium Chloride (Sodium Chloride Flush Syringe 10 Ml) 10 ml IV BID [facility] Last Admin: 10/06/18 23:19 Dose: 10 ml Documented by: Sodium Chloride (Sodium Chloride Flush Syringe 10 Ml) 10 ml IV PRN PRN PRN Reason: LINE FLUSH Tramadol HCl (Ultram) 50 mg PO Q6H PRN PRN Reason: Pain, Moderate (4-6) Last Admin: 10/06/18 23:18 Dose: 50 mg Documented by: Exam - Constitutional Vital Signs: Temp Pulse Resp BP Pulse Ox 98.0 F 63 20 135/71 95 10/07/18 07:45 10/07/18 08:48 10/07/18 08:48 10/07/18 08:43 10/07/18 08:48 - Labs CBC & Chem 7: 10/05/18 00:07 10/05/18 00:07 Lab Results: Laboratory Results - last 24 hr 10/07/18 10/07/18 03:57 11:00 PT 15.3 H INR 1.24 H APTT 35.1 Fluid Type Ascitic Fluid Color Yellow Fluid Appearance Clear Fluid WBC 122 Fluid RBC 30 Fluid Seg Neutrophils 0 Fluid Lymphocytes 22.0 Fluid Reactive Lymphs 0 Fluid Monocytes 78.0 Fluid Eosinophils 0 Fluid Basophils 0
--- NOTE | 2018-10-07 13:55 | Gastroenterology Progress Note ---
Assessment and Plan 1.abdominal distention 2.ascites -LFTs WNL -albumin 2.9 -Patient [facility] of [facility] disease. Current labs not c/w significant underlying liver disease. etiology likely due to heart failure/renal failure -s/p paracentesis this am with removal of 8500ml of fluid (no evidence of SBP) -clinically, patient reports feeling better with abd pain/distention now improved. No N/v or signs of bleeding. Tolerating diet. -fluid restriction per nephrology -low sodium diet -LVP PRN -continue supportive care -patient okay to be d/c per GI standpoint with [facility] -will sign off, please call if needed Subjective Date of service: 10/07/18 Principal diagnosis: ascites/abd distention Interval history: Patient sitting up in bedside chair this afternoon eating lunch w/o acute distress. Reports feeling significantly better s/p paracentesis this am with abd distention now improved. Denies N/v or signs of bleeding. Objective - Constitutional Vitals: Temp Pulse Resp BP Pulse Ox 98.0 F 63 20 135/71 95 10/07/18 07:45 10/07/18 08:48 10/07/18 08:48 10/07/18 08:43 10/07/18 08:48 General appearance: no acute distress - Respiratory Respiratory effort: normal - Cardiovascular Rhythm: regular - Gastrointestinal General gastrointestinal: Present: soft, non-tender, distended (slightly ), normal bowel sounds - Neurologic Neurological: alert and oriented x3 - Labs CBC & Chem 7: 10/05/18 00:07 10/05/18 00:07 Labs: Laboratory Results - last 24 hr 10/07/18 10/07/18 03:57 11:00 PT 15.3 H INR 1.24 H APTT 35.1 Fluid Type Ascitic Fluid Color Yellow Fluid Appearance Clear Fluid WBC 122 Fluid RBC 30 Fluid Seg Neutrophils 0 Fluid Lymphocytes 22.0 Fluid Reactive Lymphs 0 Fluid Monocytes 78.0 Fluid Eosinophils 0 Fluid Basophils 0
[2018-10-07 14:01] LABS: Calcium 7.9 mg/dL (8.4-10.2)
[2018-10-07] MEDS ORDERED: NACL 0.9 (PRIMING MACHINE ONLY DIALYSIS) MC ONE (15:44)
[2018-10-07 16:59] VITALS: BP 148/81
[2018-10-07] MEDS: ULTRAM PO PRN (17:21)
--- NOTE | 2018-11-21 22:34 | Progress Note ---
Assessment and Plan Assessment and plan: 63-year-old man who presents to the hospital suicidal ideation EKG shows atrial sensing with ventricular pacing with complete capture Suicidal ideation, major depression Management per psychiatry, Haldol when necessary agitation. Patient states that he did not really want to kill himself. He had a lot of pain, was able to get pain meds from his PCP and therefore has felt stressed out. He had no intention to kill himself, had no plan to kill himself. Was just frustrated, couldn't take the pain anymore End-stage renal disease Internal Corrosion Specialist consulted for maintenance dialysis Right lung airspace disease CT scan ordered by ER physician showed trace interstitial edema and no pneumonia but cirrhotic liver with marked ascites in abdomen was seen planned for paracentesis Decompensated cirrhotic liver disease Ascites Obtain hepatitis screening labs, ultrasound guided paracentesis ordered GI consult, Htn urgency optimize bp meds tobacco abuse nicotine patch, counseled about cessation for 11 mins DVT prophylaxis with Lovenox History Interval history: Patient is complaining of severe back pain, which he says he has chronically Review of systems Constitutional: No fevers, no malaise, no joint pains CVS: No chest pain, no orthopnea, no dyspnea on exertion, no pedal edema GI: No abdominal pain but says it is tight, no diarrhea, no vomiting, no constipation Respiratory: no wheezing, no coughing Hospitalist Physical - Physical exam Narrative exam: General.: Appears well, no distress, nontoxic HEENT: Moist mucous membranes, extraocular muscles intact, no lymphadenopathy Neck: supple Cardiac: S1-S2 heard Lungs: clear to auscultation bilaterally Abdomen: soft , distended with shifting dullness Extremities: no edema clubbing or cyanosis Skin: no rash or lesions Neurologic: no gross focal deficits Psych: calm, and cooperative - Constitutional Vitals: Temp Pulse Resp BP Pulse Ox 98.0 F 59 L 18 148/81 95 10/07/18 14:26 10/07/18 16:49 10/07/18 16:49 10/07/18 16:49 10/07/18 10:00 General appearance: Present: no acute distress, well-nourished Results - Labs CBC & Chem 7: 10/05/18 00:07 10/07/18 12:58 Labs: Laboratory Last Values WBC 5.4 K/mm3 (4.5-11.0) 10/05/18 00:07 RBC 4.18 M/mm3 (3.65-5.03) 10/05/18 00:07 Hgb 10.7 gm/dl (11.8-15.2) L 10/05/18 00:07 Hct 32.1 % (35.5-45.6) L 10/05/18 00:07 MCV 77 fl (84-94) L 10/05/18 00:07 MCH 26 pg (28-32) L 10/05/18 00:07 MCHC 33 % (32-34) 10/05/18 00:07 RDW 23.7 % (13.2-15.2) H 10/05/18 00:07 Plt Count 269 K/mm3 (140-440) 10/05/18 00:07 Lymph % (Auto) 18.6 % (13.4-35.0) 10/05/18 00:07 Allen % (Auto) 10.6 % (0.0-7.3) H 10/05/18 00:07 Eos % (Auto) 2.5 % (0.0-4.3) 10/05/18 00:07 Baso % (Auto) 1.1 % (0.0-1.8) 10/05/18 00:07 Lymph # 1.0 K/mm3 (1.2-5.4) L 10/05/18 00:07 Allen # 0.6 K/mm3 (0.0-0.8) 10/05/18 00:07 Eos # 0.1 K/mm3 (0.0-0.4) 10/05/18 00:07 Baso # 0.1 K/mm3 (0.0-0.1) 10/05/18 00:07 Seg Neutrophils % 67.2 % (40.0-70.0) 10/05/18 00:07 Seg Neutrophils # 3.6 K/mm3 (1.8-7.7) 10/05/18 00:07 PT 15.3 Sec. (12.2-14.9) H 10/07/18 03:57 INR 1.24 (0.87-1.13) H 10/07/18 03:57 APTT 35.1 Sec. (24.2-36.6) 10/07/18 03:57 Sodium 140 mmol/L (137-145) 10/07/18 12:58 Potassium 6.4 mmol/L (3.6-5.0) H* D 10/07/18 12:58 Chloride 99.2 mmol/L (98-107) 10/07/18 12:58 Carbon Dioxide 21 mmol/L (22-30) L 10/07/18 12:58 26 mmol/L 10/07/18 12:58 BUN 99 mg/dL (9-20) H 10/07/18 12:58 13.0 mg/dL (0.8-1.5) H 10/07/18 12:58 Estimated GFR 5 ml/min 10/07/18 12:58 8 % 10/07/18 12:58 Glucose 113 mg/dL (75-100) H 10/07/18 12:58 Calcium 7.9 mg/dL (8.4-10.2) L 10/07/18 12:58 0.20 mg/dL (0.1-1.2) 10/05/18 00:07 AST 30 units/L (5-40) 10/05/18 00:07 ALT 16 units/L (7-56) 10/05/18 00:07 111 units/L (35-129) 10/05/18 00:07 6.3 g/dL (6.3-8.2) 10/05/18 00:07 2.9 g/dL (3.9-5) L 10/05/18 00:07 0.9 % 10/05/18 00:07 Yellow (Yellow) 10/05/18 05:06 Clear (Clear) 10/05/18 05:06 8.0 (5.0-7.0) H 10/05/18 05:06 Ur Specific [place] 1.011 (1.003-1.030) 10/05/18 05:06 30 mg/dl mg/dL (Negative) 10/05/18 05:06 Neg mg/dL (Negative) 10/05/18 05:06 Neg mg/dL (Negative) 10/05/18 05:06 Neg (Negative) 10/05/18 05:06 Neg (Negative) 10/05/18 05:06 Neg (Negative) 10/05/18 05:06 < 2.0 mg/dL (<2.0) 10/05/18 05:06 Ur Leukocyte Esterase Tr (Negative) 10/05/18 05:06 5.0 /HPF (0.0-6.0) 10/05/18 05:06 1.0 /HPF (0.0-6.0) 10/05/18 05:06 Fluid Type Ascitic 10/07/18 11:00 Fluid Color Yellow 10/07/18 11:00 Fluid Appearance Clear 10/07/18 11:00 Fluid WBC 122 /mm3 10/07/18 11:00 Fluid RBC 30 /mm3 10/07/18 11:00 Fluid Seg Neutrophils 0 % 10/07/18 11:00 Fluid Lymphocytes 22.0 % 10/07/18 11:00 Fluid Reactive Lymphs 0 % 10/07/18 11:00 Fluid Monocytes 78.0 % 10/07/18 11:00 Fluid Eosinophils 0 % 10/07/18 11:00 Fluid Basophils 0 % 10/07/18 11:00 Fluid Albumin 1.5 g/dL 10/07/18 11:00 Presumptive negative 10/05/18 05:06 Presumptive negative 10/05/18 05:06 Ur Barbiturates Screen Presumptive negative 10/05/18 05:06 Ur Phencyclidine Scrn Presumptive negative 10/05/18 05:06 Ur Amphetamines Screen Presumptive negative 10/05/18 05:06 U Benzodiazepines Scrn Presumptive negative 10/05/18 05:06 Presumptive negative 10/05/18 05:06 U Marijuana (THC) Screen Presumptive negative 10/05/18 05:06 Disclamer 10/05/18 05:06 Plasma/Serum Alcohol < 0.01 % (0-0.07) 10/05/18 01:26 Hepatitis A IgM Ab Non-reactive (NonReactive) 10/05/18 18:56 Hep Bs Antigen Non-reactive (Negative) 10/05/18 18:56 Hep B Core IgM Ab Non-reactive (NonReactive) 10/05/18 18:56 Non-reactive (NonReactive) 10/05/18 18:56
--- NOTE | 2018-11-21 22:40 | Discharge Summary ---
Providers - Providers Date of Admission: 10/05/18 07:58 Attending physician: GERARDO ORNELAS MD 10/05/18 01:17 Consult to Mental Health [CONS] Stat Reason For Exam: suicidal Place consult to:: [facility] Notified:: y 10/05/18 12:56 Consult to Physician [CONS] Routine Comment: NICOLAS Consulting Provider: SHER MACHADO Physician Instructions: CONSULT WAS CALLED TO /BETO Reason For Exam: esrd 10/05/18 12:59 Consult to Mental Health [CONS] Routine Reason For Exam: behavioral disturbance [facility]sie 10/05/18 16:59 Consult to Physician [CONS] Routine Comment: NICOLAS Consulting Provider: NEEL COBOS Physician Instructions: WAS NOTIFIED Reason For Exam: cld [facility] Condition: Stable Hospital course: 63-year-old man who presents to the hospital suicidal ideation EKG shows atrial sensing with ventricular pacing with complete capture Suicidal ideation? Due to chronic pain Management per psychiatry, Haldol when necessary agitation. Patient states that he did not really want to kill himself. He had a lot of pain, was able to get pain meds from his PCP and therefore has felt stressed out. He had no intention to kill himself, had no plan to kill himself. Was just frustrated, couldn't take the pain anymore, seen by Mental health , he was deemed not to be suicidal. 10:30 was discontinued End-stage renal disease Pre Press Manager continued maintenance dialysis Right lung airspace disease CT scan ordered by ER physician showed trace interstitial edema , no further w/o recommended Decompensated cirrhotic liver disease Ascites , paracentesis of 8.5L done GI consult appreciated, to fup with micropaleontologist at [place] Htn urgency optimize bp meds tobacco abuse nicotine patch, counseled about cessation for 11 mins the plan was to monitor patient overnight given large volume paracentesis and uncontrolled pain. But the patient felt better after his paracentesis and dejuan d out against medical advice Disposition: DC-07 LEFT AGAINST MED ADVICE Time spent for discharge: 33 mins Core Measure Documentation - Palliative Care Palliative Care/ Comfort Measures: Not Applicable - Core Measures Any of the following diagnoses?: none Exam - Constitutional Vitals: Temp Pulse Resp BP Pulse Ox 98.0 F 59 L 18 148/81 95 10/07/18 14:26 10/07/18 16:49 10/07/18 16:49 10/07/18 16:49 10/07/18 10:00 General appearance: Present: no acute distress, well-nourished - EENT Eyes: Present: PERRL ENT: hearing intact, clear oral mucosa - Neck Neck: Present: supple, normal ROM - Respiratory Respiratory effort: normal Respiratory: bilateral: CTA - Cardiovascular Heart Sounds: Present: S1 & S2. Absent: rub, click - Extremities Extremities: pulses symmetrical, No edema Peripheral Pulses: within normal limits - Abdominal General gastrointestinal: Present: soft, non-tender, non-distended, normal bowel sounds Male genitourinary: Present: normal - Integumentary Integumentary: Present: clear, warm, dry - Musculoskeletal Musculoskeletal: gait normal, strength equal bilaterally - Psychiatric Psychiatric: appropriate mood/affect, intact judgment & insight - Neurologic Neurologic: CNII-XII intact, moves all extremities Plan Follow up with: KEREN CERVANTES MD [Primary Care Provider] - 3-5 Days
== END 2018-10-07 18:20 | disposition left against medical advice (07) | DRG 432 ==
LOC: ED 23:15 → 2B-ACE 10-05 07:58
PROVIDERS: ADMIT Hospitalist; ATTEND Internal Medicine
PROC: 0W9G3ZZ Drainage of Peritoneal Cavity, Percutaneous Approach (ICD-10-PCS; principal; 2018-10-07)
DX: K74.60 Unspecified cirrhosis of liver (principal); N18.6 End stage renal disease; R18.8 Other ascites; G89.29 Other chronic pain; I16.0 Hypertensive urgency; F17.200 Nicotine dependence, unspecified, uncomplicated; M54.5 Low back pain; D63.1 Anemia in chronic kidney disease; J44.9 Chronic obstructive pulmonary disease, unspecified; F32.9 Major depressive disorder, single episode, unspecified; Z82.49 Family history of ischemic heart disease and other diseases of the circulatory system; Z71.6 Tobacco abuse counseling; Z95.810 Presence of automatic (implantable) cardiac defibrillator; Z53.21 Procedure and treatment not carried out due to patient leaving prior to being seen by health care provider
CPT/HCPCS: 36415; 49083; 71045; 71250; 80048; 80053; 80074; 80307; 80320; 81001; 82040; 85025; 85610; 85730; 87116; 88112; 88305; 89051; 93005; 93010; G0378; G0480; J0360; J0885; J2270; J7030